=== PATIENT | female | born 1990 | race African-American/Black ===

== ENCOUNTER → 2017-03-28 | Outpatient (CLI) | payer OTHER ==
[2017-03-28 13:42] LABS: Hepatitis B Surface Antibody Positive
== END | disposition home or self-care (01) ==
LOC: LAB 06:50
PROVIDERS: ATTEND Physician Assistant
DX: V50 Occupant of pick-up truck or van injured in collision with pedestrian or animal (principal)
CPT/HCPCS: 36415; 86703; 86706; 86803; 87340